=== PATIENT | male | born 1975 | race Caucasian/White ===

== ENCOUNTER 2024-10-09 16:29 | Emergency (ER) | payer BC ==
[2024-10-09] MEDS: Lidocaine 1% 10 ML MDV INJECT ONE (16:35)
== END 2024-10-09 16:44 | disposition home or self-care (01) ==
LOC: LB.ED 16:29
DX: S60.453A Superficial foreign body of left middle finger, initial encounter (principal); Z79.82 Long term (current) use of aspirin; Z79.899 Other long term (current) drug therapy; W45.8XXA Other foreign body or object entering through skin, initial encounter
CPT/HCPCS: 99282; 99283